=== PATIENT | male | born 1985 | race Caucasian/White ===

== ENCOUNTER 2018-01-10 20:13 | Emergency (ER) | payer SELFPAY ==
[~2018-01-10] VITALS: Ht 167.6 cm; Wt 68.0 kg
[2018-01-11 01:54] VITALS: BP 120/64
== END 2018-01-11 01:56 | disposition home or self-care (01) ==
LOC: ER 21:18
DX: K64.5 Perianal venous thrombosis (principal)
CPT/HCPCS: 99283